=== PATIENT | female | born 1950 | race Caucasian/White ===

== ENCOUNTER → 2016-12-28 | Outpatient (CLI) | payer MEDICARE, BC | LOC: MW.CHENT 08:00 | PROVIDERS: ATTEND Otolaryngology | DX: R04.0 Epistaxis (principal); R42 Dizziness and giddiness; W19.XXXA Unspecified fall, initial encounter; G35 Multiple sclerosis | CPT/HCPCS: 99204 ==

== ENCOUNTER → 2016-12-30 | Outpatient (CLI) | payer MEDICARE, BC ==
[2016-12-30] MEDS: Gadobutrol 10 mMOL/10 ML SDV IVPUSH STA (12:06)
--- NOTE | 2016-12-31 09:02 | MR ---
EXAMINATION: MRI of the brain with and without contrast. TECHNIQUE: Multiplanar and multisequence imaging of the brain without and following the administrati on of 10 mL of Gadavist. HISTORY: Dizziness. Comparison: 06/14/2008 FINDINGS: Cerebral hemispheres and the deep nuclei are without hemorrhage, mass, edema, enhancement or atrophy . Multifocal periventricular and subcortical white matter FLAIR intensities are noted. Overall thes e appear similar in appearance to the previous MRI. No abnormal diffusion restriction or enhancement is noted. No extraaxial collections or hemorrhage. Ventricular system is of normal size and configuration with out hydrocephalus. The brainstem and cerebellum are without hemorrhage, mass, edema, gliosis, enhanc ement or atrophy. Carotid basilar artery flow voids are intact. The otomastoid airspaces are clear. No internal vivian tory canal or cerebellopontine angle masses or enhancement. There is a mucous retention cyst within the right maxillary sinus. Globes, optic nerves, orbital apices, optic chiasm, optic tracts, and visual cortices are unremarka ble. The pituitary and sella turcica are unremarkable. No meningeal enhancement. No evidence of meningitis. Craniocervical junction is unremarkable. No siderosis or evidence of vascular malformation. The ca lvarium is intact. IMPRESSION: 1. Multifocal areas of periventricular and subcortical white matter FLAIR signal, unchanged. This is consistent with history of multiple sclerosis. 2. No evidence of active demyelination. 3. No acute intracranial findings.
== END | disposition home or self-care (01) ==
LOC: MW.MRI 11:57
PROVIDERS: ATTEND Otolaryngology
DX: G35 Multiple sclerosis (principal); R42 Dizziness and giddiness; G93.89 Other specified disorders of brain
CPT/HCPCS: 70553; A9585

== ENCOUNTER → 2017-01-19 | Outpatient (CLI) | payer MEDICARE, BC ==
--- NOTE | 2017-01-19 16:32 | CR ---
EXAMINATION: Left clavicle HISTORY: Disorder of bone COMPARISON: None TECHNIQUE: 2 views FINDINGS/IMPRESSION: There is no acute osseous abnormality, dislocation, or fracture identified. Bon e mineralization appears normal. Subchondral cystic changes noted within the humeral head.
--- NOTE | 2017-01-19 16:37 | CR ---
EXAMINATION: Left shoulder HISTORY: Pain COMPARISON: None TECHNIQUE: 3 views FINDINGS/IMPRESSION: There is no acute osseous abnormality, dislocation, or fracture identified. Mod erate joint space narrowing is noted within the glenohumeral joint and mild subchondral cystic marquez es noted within the humeral head. Minimal glenohumeral osteoarthritic changes are present.
== END | disposition home or self-care (01) ==
LOC: MW.CHFP 13:22
PROVIDERS: ATTEND Emergency Medicine
DX: M25.512 Pain in left shoulder (principal); M25.812 Other specified joint disorders, left shoulder; M19.012 Primary osteoarthritis, left shoulder; M89.8X1 Other specified disorders of bone, shoulder; T14.8 Other injury of unspecified body region
CPT/HCPCS: 73000-26-LT; 73000-LT; 73030-26-LT; 73030-LT; G0463

== ENCOUNTER → 2017-01-25 | Outpatient (CLI) | payer MEDICARE, BC | LOC: MW.CHENT 08:00 | PROVIDERS: ATTEND Otolaryngology | DX: R42 Dizziness and giddiness (principal); R04.0 Epistaxis; W19.XXXA Unspecified fall, initial encounter; G35 Multiple sclerosis | CPT/HCPCS: G0463 ==

== ENCOUNTER 2017-10-01 08:19 | Day surgery (SDC) | payer MEDICARE, BC ==
[~2017-10-01 08:19] MED LIST: Lactated Ringers 1,000 ML IV SCH; Lidocaine 2% 5 ML SDV ONE; Propofol 200 MG/20 ML SDV ONE; Sodium Chloride 0.9% 10 ML Syringe FLUSH PRN; Sodium Chloride 0.9% 2.5 ML Syringe FLUSH PRN
--- NOTE | 2017-10-01 09:09 | PCM.PREANE ---
Preanesthetic Assessment - Anesthesia/Transfusion/Family Hx Anesthesia History: Prior Anesthesia Without Reaction Family History of Anesthesia Reaction: No Transfusion History: No Prior Transfusion(s) Intubation History: Unknown - Review of Systems General: No Symptoms Pulmonary: No Symptoms Cardiovascular: No Symptoms Gastrointestinal: No Symptoms, Other (10 years follow up) Neurological: No Symptoms Other: Reports: None - Physical Assessment NPO Status Date: 09/29/17 NPO Status Time: 22:00 Height: 1.6 m Weight: 109.769 kg ASA Class: 3 Mental Status: Alert & Oriented x3 Airway Class: Mallampati = 2 Dentition: Reports: Normal Dentition Thyro-Mental Finger Breadths: 2 Mouth Opening Finger Breadths: 3 ROM/Head Extension: Limited/Partial Lungs: Clear to Auscultation, Normal Respiratory Effort Cardiovascular: Regular Rate, Regular Rhythm - Lab Values: Laboratory Last Values POC Glucose 141 mg/dL (60-110) H 10/01/17 08:36 - Allergies Allergies/Adverse Reactions: Allergies Allergy/AdvReac Type Severity Reaction Status Date / Time budesonide Allergy Cannot Verified 09/27/17 10:37 [From Rhinocort Allergy] Remember Latex, Natural Rubber Allergy Blisters Verified 09/27/17 10:13 Penicillins Allergy Rash Verified 09/27/17 10:13 zolpidem [From Ambien] Allergy Cannot Verified 09/27/17 10:37 Remember - Blood Blood Available: No - Anesthesia Plan Pre-Op Medication Ordered: None - Acknowledgements Anesthesia Type Planned: MAC Pt an Appropriate Candidate for the Planned Anesthesia: Yes Alternatives and Risks of Anesthesia Discussed w Pt/Guardian: Yes Pt/Guardian Understands and Agrees with Anesthesia Plan: Yes PreAnesthesia Questionnaire HEENT History: Reports: Allergic Rhinitis, Cataract, Glaucoma Other HEENT History: uses glasses for driving Cardiovascular History: Reports: High Cholesterol, Hypertension Other Cardiovascular History: takes antihypertensive for diabetes Respiratory History: Reports: Sleep Apnea Other Respiratory History: uses CPAP Musculoskeletal History: Reports: Arthritis, Back Pain, Chronic Neurological History: Reports: MS, Vertigo, Other (See Below) Other Neuro History: hx of motion sickness Endocrine/Metabolic History: Reports: Diabetes, Type II, Hypothyroidism, Obesity /BMI 30+ - Past Surgical History HEENT Surgical History: Reports: Cataract Surgery GI Surgical History: Reports: Colonoscopy (10-11 years ago - no polyps) Female Surgical History: Reports: Other (See Below) Other Female Surgeries/Procedures: surgery to open fallopian tubes Endocrine Surgical History: Reports: Thyroidectomy Musculoskeletal Surgical History: Reports: Other (See Below) Other Musculoskeletal Surgeries/Procedures:: removal of ganglion cyst right wrist - SUBSTANCE USE Smoking Status *Q: Former Smoker Tobacco Use Within Last Twelve Months: No Recreational Drug Use History: No - HOME MEDS Home Medications: Home Meds ALPRAZolam [Xanax] 1 mg PO BEDTIME PRN 09/27/17 [History] Aspirin [Adult Low Dose Aspirin EC] 81 mg PO DAILY 09/27/17 [History] Baclofen 10 mg PO TID PRN 09/27/17 [History] Bisoprolol/Hydrochlorothiazide [Ziac 2.5-6.25 MG] 1 tab PO DAILY 09/27/17 [ History] Calcium Carbonate/Vitamin D3 [Calcium 600 + Vit D 200] 1 tab PO TID 09/27/17 [ History] Cholecalciferol (Vitamin D3) [Vitamin D3] 400 unit PO DAILY 09/27/17 [History] Cyanocobalamin (Vitamin B12) [Vitamin B12] 1,000 mcg PO DAILY 09/27/17 [History] Diazepam [Valium] 5 mg PO QID PRN 09/27/17 [History] Dorzolamide HCl/Timolol Maleat [Dorzolamide-Timolol Eye Drops] 1 drop EYEBOTH BID 09/27/17 [History] Fish Oil/[place]-3 Fatty Acids [Fish Oil 1,000 MG] 1 gm PO BID 09/27/17 [History] Flaxseed Oil 1,000 mg PO BID 09/27/17 [History] Furosemide 40 mg PO ASDIRECTED 09/27/17 [History] Gluc/Franc-Msm#1/Vit C/Tico/Bor [Usztvrf-Muajx-YWZ Complex Cplt] 1 tab PO BID 09/03 [History] Levocetirizine Dihydrochloride [Xyzal] 5 mg PO DAILY 09/27/17 [History] Levothyroxine Sodium [Levo-T] 150 mcg PO BEDTIME 09/27/17 [History] Lifitegrast [Xiidra] 1 drop EYEBOTH BID 09/27/17 [History] Magnesium Oxide [Magnesium] 400 mg PO DAILY 09/27/17 [History] Multivitamin [Multi-Day Vitamins] 1 tab PO DAILY 09/27/17 [History] Multivitamin with Minerals [Hair, Skin and Nails] 1 tab PO DAILY 09/27/17 [ History] Polyethylene Glycol 3350 [Miralax] 17 gm PO DAILY 09/27/17 [History] Potassium Chloride 20 meq PO BID 09/27/17 [History] Spironolactone [Aldactone] 25 mg PO DAILY 09/27/17 [History] Vitamin B Complex 1 cap PO DAILY 09/27/17 [History] atorvaSTATin Calcium [Atorvastatin Calcium] 10 mg PO BEDTIME 09/27/17 [History] metFORMIN HCl [Metformin HCl ER] 1,000 mg PO DAILY 09/27/17 [History] - CURRENT (IN HOUSE) MEDS Current Meds: Current Medications Lactated Ringer's (Ringers, Lactated) 1,000 mls @ 125 mls/hr IV ASDIRECTED OLYA Last Admin: 10/01/17 08:51 Dose: 125 mls/hr Sodium Chloride (Saline Flush) 10 ml FLUSH ASDIRECTED PRN PRN Reason: Keep Vein Open Sodium Chloride (Saline Flush) 2.5 ml FLUSH ASDIRECTED PRN PRN Reason: Keep Vein Open Discontinued Medications Lidocaine (Xylocaine-Mpf 2%) Confirm Administered Dose 5 ml .ROUTE .STK-MED ONE Stop: 10/01/17 08:19 Propofol (Diprivan 20 Ml) Confirm Administered Dose 200 mg .ROUTE .STK-MED ONE Stop: 10/01/17 08:19 Propofol (Diprivan 20 Ml) Confirm Administered Dose 200 mg .ROUTE .STK-MED ONE Stop: 10/01/17 08:20
[2017-10-01] MEDS ORDERED: Glycopyrrolate 0.2 MG/ML SDV ONE (10:11)
[2017-10-01 11:12] VITALS: BP 115/58
--- NOTE | 2017-10-01 11:35 | PCM.OPNOTE ---
- General Post-Op/Procedure Note Date of Surgery/Procedure: 10/01/17 Operative Procedure(s): Screening colonoscopy Findings: Descending colon and rectal polyp Pre Op Diagnosis: Screening colonoscopy Post-Op Diagnosis: Rectal and descending colon polyp Primary Surgeon: Erica Gaona Condition: Good Free Text/Narrative:: Intake & Output 09/30/17 10/01/17 10/01/17 22:59 06:59 14:59 Intake Total 600 Balance 600
--- NOTE | 2017-10-01 21:30 | OR ---
SURGEON: REUBEN ALCANTAR MD DATE OF PROCEDURE: 10/01/2017 PREOPERATIVE DIAGNOSIS: Screening colonoscopy. POSTOPERATIVE DIAGNOSIS: Descending colon and rectal polyp. PROCEDURE PERFORMED: Screening colonoscopy. ANESTHESIA: MAC. INSTRUMENT USED: Olympus colonoscope. EXTENT OF EXAM: To the cecum. PREPARATION: Good. LIMITATIONS: None. INDICATIONS FOR EXAMINATION: The patient is a 67-year-old female who presents for screening colonoscopy. The patient and I discussed the procedure as well as expected perioperative course. We discussed the risks including bleeding, infection, or damage to surrounding structures, which includes perforation. The patient verbalized understanding and wished to proceed. PROCEDURE IN DETAIL: The patient was brought into the endoscopy suite and placed in the left lateral decubitus position. A time-out was completed verifying the patient's name, age, date of , allergies, and procedure to be performed. Monitored anesthesia care was induced and continuous oxygen was provided via nasal cannula throughout the procedure. After adequate sedation was achieved, a digital rectal exam was performed. This exam was within normal limits. A well lubricated colonoscope was then inserted in the rectum and advanced under direct visualization to the level of cecum. The cecum was identified by both visual and anatomic landmarks. A photograph was taken of the cecal cap as well as with the scope retroflexed within the cecum. The scope was then fully withdrawn while examining the color, texture, anatomy, and integrity of the mucosa from the cecum to the anal canal. The patient was noted to have a descending colon and rectal polyp. These were both removed using a cold biopsy forceps. The scope was then brought into the rectum and retroflexed to allow visualization of the anal canal opening. This appeared normal and a photograph was taken. The scope was then straightened out and removed from the patient. The cecum to anus time was 9 minutes. The patient tolerated the procedure well and was taken to the PACU in stable condition. ENDOSCOPIC DIAGNOSES: 1. Descending colon polyp. 2. Rectal polyp. RECOMMENDATIONS: Follow up in clinic in 2 weeks. RADHA SLOAN /[id number]
== END 2017-10-01 11:00 | disposition home or self-care (01) ==
LOC: MW.SDS 08:19
PROVIDERS: ATTEND Surgery
DX: Z12.11 Encounter for screening for malignant neoplasm of colon (principal); K63.5 Polyp of colon; K62.1 Rectal polyp; L57.0 Actinic keratosis; J30.9 Allergic rhinitis, unspecified; I10 Essential (primary) hypertension; E78.00 Pure hypercholesterolemia, unspecified; E87.6 Hypokalemia; E03.9 Hypothyroidism, unspecified; E05.80 Other thyrotoxicosis without thyrotoxic crisis or storm; E11.9 Type 2 diabetes mellitus without complications; G35 Multiple sclerosis; G47.33 Obstructive sleep apnea (adult) (pediatric); Z99.89 Dependence on other enabling machines and devices; F51.04 Psychophysiologic insomnia; Z88.0 Allergy status to penicillin; Z88.8 Allergy status to other drugs, medicaments and biological substances; Z91.040 Latex allergy status; Z79.82 Long term (current) use of aspirin; Z79.84 Long term (current) use of oral hypoglycemic drugs; Z79.899 Other long term (current) drug therapy
CPT/HCPCS: 45380; 82962; J7120; 00810; 88305; J2704

== ENCOUNTER 2025-04-16 10:52 | Emergency (ER) | payer MEDICARE, BC ==
[2025-04-16 11:45] LABS: BASOPHILS ABSOLUTE AUTO 0.03 K/uL (0.00-0.20); BASOPHILS PERCENT AUTO 0.5 % (0.0-1.0); EOSINOPHILS ABSOLUTE AUTO 0.26 K/uL (0.00-0.45); EOSINOPHILS PERCENT AUTO 4.3 % (0.0-6.0); HEMATOCRIT 41.7 % (37.0-47.0); HEMOGLOBIN 13.7 g/dL (12.0-16.0); IMMATURE GRAN ABSOLUTE AUTO 0.01 K/uL (0.00-0.05); IMMATURE GRAN PERCENT AUTO 0.2 % (0.0-0.4); LYMPHOCYTES ABSOLUTE AUTO 1.96 K/uL (1.00-4.80); LYMPHOCYTES PERCENT AUTO 32.5 % (24.0-44.0); MEAN CORPUSCULAR HEMOGLOBIN 29.6 pg (28.0-32.0); MEAN CORPUSCULAR HGB CONC 32.9 g/dL (32.0-36.0); MEAN CORPUSCULAR VOLUME 90.1 fL (83.0-99.0); MONOCYTES PERCENT AUTO 8.3 % (0.0-8.0); NEUTROPHILS ABSOLUTE AUTO 3.28 K/uL (1.80-7.70); NEUTROPHILS PERCENT AUTO 54.2 % (41.0-71.0); PLATELET COUNT,PLT 206 K/uL (150-400); RED BLOOD CELL COUNT 4.63 M/uL (4.10-5.30); WHITE BLOOD CELL COUNT,WBC 6.04 K/uL (3.9-11.3)
[2025-04-16] MEDS: Acetaminophen 325 MG Tab PO ONE (11:46)
[2025-04-16 12:22] LABS: CREATININE 0.9 mg/dL (0.6-1.0); EST CRCL DRUG DOSING (CG) 43.99 mL/min; MAGNESIUM 2.1 mg/dL (1.8-2.4); POTASSIUM,K 4.3 mmol/L (3.5-5.1)
[2025-04-16 12:42] VITALS: BP 116/56; PULSE 74
== END 2025-04-16 12:42 | disposition home or self-care (01) ==
LOC: MW.ED 10:52
DX: R51.9 Headache, unspecified (principal); I10 Essential (primary) hypertension; E78.00 Pure hypercholesterolemia, unspecified; E03.9 Hypothyroidism, unspecified; E66.9 Obesity, unspecified; E11.9 Type 2 diabetes mellitus without complications; Z88.0 Allergy status to penicillin; Z88.8 Allergy status to other drugs, medicaments and biological substances; Z79.899 Other long term (current) drug therapy; Z79.82 Long term (current) use of aspirin; Z79.890 Hormone replacement therapy
CPT/HCPCS: 36415; 70450; 80048; 83735; 85025; 99284; A9270; 99283